=== PATIENT | male | born 1930 | race Caucasian/White ===

== ENCOUNTER 2016-10-02 20:20 | Observation (INO) | payer MEDICARE ==
[~2016-10-02] VITALS: Ht 177.8 cm; Wt 77.0 kg
[~2016-10-02 20:20] MED LIST: HYDR-2952 PO; TRAV0.00 EACH EYE
[2016-10-02 20:23] VITALS: BP 144/73; PULSE 75; RESP 18; TEMP 97.6; O2SAT 95
[2016-10-02] MEDS ORDERED: WARF-23 PO (20:49)
--- NOTE | 2016-10-02 21:09 | PD ---
HPI Chief Complaint: Abnormal Results Time Seen by Provider: 21:05 Travel History International Travel<30 days: No Contact w/Intl Traveler<30days: No Traveled to known affect area: No History of Present Illness HPI 86-year-old male that presents to the ED for evaluation of abnormal results. Per patient about 2 weeks ago he was given a pacemaker secondary to having a low heart rate. Per patient he was put on warfarin secondary to this procedure. He has never taking warfarin before and his been compliant with it. Per patient initially his INR seem to be too low but they kept on the same dose of 5 mg every day. Per patient apparently yesterday had an issue with the machine and they couldn't really get his Coumadin level by fingerstick and they told to withhold his dose today. Today the nurse evaluated him and couldn't get it again so she tried the blood labs and he came high with a level of 12. Patient was told to come here immediately. He denies any pain to me. He denies any weakness. No bleeding of any kind. Per patient he does have some chronic seen issues with the lower legs but no other acute disease. Patient has had a to latex and sulfa. He denies any falls. He denies any complaints to me. Patient comes here with friend who is his neighbor. PFSH Past Medical History Hx Anticoagulant Therapy: Yes (COUMADIN) Cancer: No Cardiovascular Problems: Yes (PACEMAKER) Diabetes: No Diminished Hearing: Yes (UTE) Endocrine: No Genitourinary: No Hepatitis: No Hiatal Hernia: No Hypertension: Yes (HX HTN) Immune Disorder: No Medical other: No Musculoskeletal: Yes (ARTHRITIS) Neurologic: No Psychiatric: No Reproductive: No Respiratory: Yes (COPD) Thyroid Disease: No Tetanus Vaccination: Never Vaccinated Influenza Vaccination: No Past Surgical History Abdominal Surgery: Yes (LAP CHONG) Body Medical Devices: NONE Cholecystectomy: Yes Pacemaker: Yes (09/19/16) Social History Alcohol Use: No Tobacco Use: Yes Substance Use: No Allergies-Medications (Allergen,Severity, Reaction): Coded Allergies: Latex (Verified Allergy, Unknown, 10/02/16) Sulfa (Verified Allergy, Unknown, 10/02/16) Reported Meds & Prescriptions Reported Meds & Active Scripts Active Reported Warfarin 5 Mg Tab 5 Mg PO DAILY Review of Systems General / Constitutional: No: Fever, Chills, Weight Gain, Weight Loss, Other Eyes: No: Diploplia, Blurred Vision, Photophobia, Drainage, Redness, Foreign Body Sensation, Pain, Tearing, Blind Spots, Visual changes, Blindness, Other HENT: No: Headaches, Vertigo, Lightheadedness, Sore Throat, Rhinitis, Rhinorrhea, Congestion, Nosebleed, Neck Stiffness, Neck Pain, Masses, Gingival Bleeding, Dental Difficulties, Ear Discharge, Earache, Other Cardiovascular: No: Chest Pain or Discomfort, Palpitations, Irregular Rhythm, Tachycardia, Diaphoresis, Syncope, Dyspnea on exertion, Varicosities, Edema, Cyanosis, Varicosities, Phlebitis, Claudication, Other Respiratory: No: Cough, Shortness of Breath, Wheezing, Sneezing, Orthopnea, Hemoptysis, Stridor, Night Sweats, Pleuritic Pain, Other Gastrointestinal: No: Nausea, Vomiting, Diarrhea, Abdominal Pain, Hematemesis, Hematochezia, Constipation, Changes in Bowel Habits, Indigestion, Dysphagia, Loss of Appetite, Other Genitourinary: No: Urgency, Frequency, Dysuria, Nocturia, Hematuria, Decreased Urinary Output, Oliguria, Hesitancy, Dribbling, Incontinence, Pelvic Pain, Flank Pain, Dyspareunia, Discharge, Dysmenorrhea, Menorrhagia, Metorrhagia, Vaginal Bleeding, Other Musculoskeletal: Positive: Edema, No: Myalgias, Arthralgias, Limited ROM, Weakness, Cramping, Pain, Atrophy, Other Skin: Positive Rash, No Itching, No Dryness, No Lumps, No Hives, No Change in Pigmentation, No Change in nails, No Alopecia, No Lesions, No Breast Lumps, No Breast Tenderness, No Breast Swelling, No Other Neurologic: No: Weakness, Dizziness, Syncope, Focal Abnormalities, Coordination Problem, Tremor, Ataxia, Headache, Change in Mentation, Slurred Speech, Paresthesia, Incontinence, Seizures, Sensory Disturbance, Other Psychiatric: No: Anxiety, Depression, Suicidal Ideations, Disorder of Thought, Mood Disorder, Substance Abuse, Homicidal Ideation, Other Endocrine: No: Heat Intolerance, Cold Intolerance, Polyuria, Polydipsia, Other Hematologic/Lymphatic: Positive: Easy Bruising, No: Lymph Node Enlargement, Other Physical Exam Narrative GENERAL: SKIN: Warm and dry. HEAD: Atraumatic. Normocephalic. EYES: Pupils equal and round. No scleral icterus. No injection or drainage. ENT: No nasal bleeding or discharge. Mucous membranes pink and moist. Tongue is midline. No uvula deviation. NECK: Trachea midline. No JVD. CARDIOVASCULAR: Regular rate and rhythm. No murmurs, S3, S4. RESPIRATORY: No accessory muscle use. Clear to auscultation. Breath sounds equal bilaterally. GASTROINTESTINAL: Abdomen soft, non-tender, nondistended. Hepatic and splenic margins not palpable. MUSCULOSKELETAL: Extremities without clubbing, cyanosis, or edema. No obvious deformities. Full range of motion of the upper and lower extremities bilaterally. Patient does have some lower leg edema and swelling. This appears to be chronic. Chronic changes of the skin noted. NEUROLOGICAL: Awake and alert. No obvious cranial nerve deficits. Motor grossly within normal limits. Five out of 5 muscle strength in the arms and legs. Normal speech. PSYCHIATRIC: Appropriate mood and affect; insight and judgment normal. Data Data Last Documented VS Vital Signs Date Time Temp Pulse Resp B/P Pulse Ox O2 Delivery O2 Flow Rate FiO2 10/02/16 21:43 78 16 109/67 96 Room Air 10/02/16 20:23 97.6 Orders Complete Blood Count With Diff (10/02/16 20:39) Basic Metabolic Panel (Bmp) (10/02/16 20:39) Prothrombin Time / Inr (Pt) (10/02/16 20:39) Act Partial Throm Time (Ptt) (10/02/16 20:39) Magnesium (Mg) (10/02/16 20:39) Iv Access Insert/Monitor (10/02/16 20:39) Type And Screen (10/02/16 20:39) Phytonadione Inj (Vitamin K Inj) (10/02/16 22:00) Labs Laboratory Tests Test 10/02/16 20:45 White Blood Count 6.1 TH/MM3 Red Blood Count 4.50 MIL/MM3 Hemoglobin 13.5 GM/DL Hematocrit 39.6 % Mean Corpuscular Volume 88.0 FL Mean Corpuscular Hemoglobin 29.9 PG Mean Corpuscular Hemoglobin 34.0 % Concent Red Cell Distribution Width 14.2 % Platelet Count 190 TH/MM3 Mean Platelet Volume 7.5 FL Neutrophils (%) (Auto) 63.1 % Lymphocytes (%) (Auto) 24.8 % Monocytes (%) (Auto) 6.4 % Eosinophils (%) (Auto) 3.9 % Basophils (%) (Auto) 1.8 % Neutrophils # (Auto) 3.8 TH/MM3 Lymphocytes # (Auto) 1.5 TH/MM3 Monocytes # (Auto) 0.4 TH/MM3 Eosinophils # (Auto) 0.2 TH/MM3 Basophils # (Auto) 0.1 TH/MM3 CBC Comment DIFF FINAL Differential Comment Prothrombin Time 166.1 SEC Prothromb Time International 13.4 RATIO Ratio Activated Partial 58.1 SEC Thromboplast Time Blood Type O POSITIVE MDM Medical Decision Making Medical Screen Exam Complete: Yes Emergency Medical Condition: Yes Medical Record Reviewed: Yes Interpretation(s) CBC Diagram 10/02/16 20:45 Coags highly elevated with INR of 13. Differential Diagnosis Coagulopathy versus elevated INR versus medication side effect Narrative Course 86-year-old male that presents to the ED for evaluation of INR of 12. Patient was properly examined and was found to have signs and symptoms consistent with appears to be possible colopathy. Labs will be drawn. Patient has no sign of bleeding at this time. He denies any dark stools no urinary bleeding. No cough or recent bruising at this time. Labs showed coagulopathy. INR 13. Case was discussed in my attending who recommends admission for observation and vitamin K. Partially patient is Judaism and requests no blood pressure was given. Patient lives by himself. Because of this patient will be admitted for observation. This was discussed with patient agrees to admission. Dr Hopkins agrees to admission. Diagnosis Primary Impression: Coagulopathy Admitting Information Admitting Physician Requests: Observation Thomas Blair Oct 02, 2016 21:09
[2016-10-02 21:10] LABS: AUTOMATED NEUTROPHIL # 3.8 TH/MM3 (1.8-7.7); BASOPHIL # 0.1 TH/MM3 (0-0.2); BASOPHIL % 1.8 % (0.0-2.0); EOSINOPHIL # 0.2 TH/MM3 (0-0.4); EOSINOPHIL % 3.9 % (0.0-4.0); HEMATOCRIT 39.6 % (39.0-51.0); HEMO FLAGS DIFF FINAL; LYMPH % 24.8 % (9.0-44.0); LYMPHOCYTE # 1.5 TH/MM3 (1.0-4.8); MEAN CORPUSCULAR HEMOGLOBIN 29.9 PG (27.0-34.0); MONO % 6.4 % (0.0-8.0); NEUT % 63.1 % (16.0-70.0); PLATELET COUNT 190 TH/MM3 (150-450); RED CELL DISTRIBUTION WIDTH 14.2 % (11.6-17.2); WHITE BLOOD COUNT 6.1 TH/MM3 (4.0-11.0)
[2016-10-02 21:43] VITALS: BP 109/67; PULSE 78; RESP 16; O2SAT 96
[2016-10-02 21:46] LABS: APTT (PATIENT) 58.1 SEC (24.3-30.1); PROTHROMBIN TIME - PATIENT 166.1 SEC (9.8-11.6)
[2016-10-02 21:47] LABS: INTERNATIONAL NORMALIZED RATIO 13.4 RATIO
[2016-10-02] MEDS ORDERED: PHYTONADIONE INJ 10 MG in SODIUM CHLORIDE 0.9% INJ 50 ML IV ONE (22:00)
[2016-10-02 22:44] LABS: BICARBONATE 31.2 MEQ/L (21.0-32.0); MAGNESIUM 2.4 MG/DL (1.5-2.5)
[2016-10-02 22:46] LABS: POTASSIUM 4.8 MEQ/L (3.5-5.1)
[2016-10-02 23:40] VITALS: BP 109/67; PULSE 77; RESP 18; O2SAT 97
[2016-10-03 06:00] VITALS: BP 142/71; PULSE 76; RESP 18; TEMP 98.8; O2SAT 97
[2016-10-03 07:18] LABS: INTERNATIONAL NORMALIZED RATIO 2.1 RATIO; PROTHROMBIN TIME - PATIENT 23.9 SEC (9.8-11.6)
[2016-10-03 08:15] VITALS: BP 152/86; PULSE 65; RESP 19; TEMP 98.9; O2SAT 99
[2016-10-03 12:12] VITALS: BP 133/64; PULSE 66; RESP 17; TEMP 97.7; O2SAT 99
--- NOTE | 2016-10-03 12:15 | HHI.HP ---
HPI Service [facility] Primary Care Physician Wilver Hernandes MD Admission Diagnosis coagulopathy on coumadin, INR of 13 Chief Complaint: abnormal lab Travel History International Travel<30 Days: No Contact w/Intl Traveler <30 Da: No Traveled to Known Affected Are: No History of Present Illness Pt is 86 yo presents to ED for elevation of inr. Says he recently had PM placed by Dr José and was prescribed coumadin. This was found to be elevated by nursing. No bleeding has occurred. Pt was given vit k iv 10mg last night and inr down from 13 to 2. Pt insisting on going home this morning. Review of Systems Other abnormal inr no bleeding. Past Family Social History Past Medical History htn pacemaker sleep apnea emphesema per records lap augustin. Reported Medications Reported Meds & Active Scripts Active Reported Warfarin 5 Mg Tab 5 Mg PO DAILY Allergies: Coded Allergies: Latex (Verified Allergy, Unknown, 10/02/16) Sulfa (Verified Allergy, Unknown, 10/02/16) Family History nc Social History no etoh/tob Physical Exam Vital Signs heart reg lung cta abd s/nt ext no edema Vital Signs Date Time Temp Pulse Resp B/P Pulse Ox O2 Delivery O2 Flow Rate FiO2 10/03/16 08:15 98.9 65 19 152/86 99 10/03/16 06:00 98.8 76 18 142/71 97 10/02/16 23:40 77 18 109/67 97 10/02/16 21:43 78 16 109/67 96 Room Air 10/02/16 20:42 76 18 10/02/16 20:23 97.6 75 18 144/73 95 Room Air Laboratory Laboratory Tests Test 10/02/16 10/03/16 20:45 06:45 White Blood Count 6.1 Red Blood Count 4.50 Hemoglobin 13.5 Hematocrit 39.6 Mean Corpuscular Volume 88.0 Mean Corpuscular Hemoglobin 29.9 Mean Corpuscular Hemoglobin 34.0 Concent Red Cell Distribution Width 14.2 Platelet Count 190 Mean Platelet Volume 7.5 Neutrophils (%) (Auto) 63.1 Lymphocytes (%) (Auto) 24.8 Monocytes (%) (Auto) 6.4 Eosinophils (%) (Auto) 3.9 Basophils (%) (Auto) 1.8 Neutrophils # (Auto) 3.8 Lymphocytes # (Auto) 1.5 Monocytes # (Auto) 0.4 Eosinophils # (Auto) 0.2 Basophils # (Auto) 0.1 CBC Comment DIFF FINAL Differential Comment Prothrombin Time 166.1 23.9 Prothromb Time International 13.4 2.1 Ratio Activated Partial 58.1 Thromboplast Time Sodium Level 139 Potassium Level 4.8 Chloride Level 102 Carbon Dioxide Level 31.2 Anion Gap 6 Blood Urea Nitrogen 23 Creatinine 0.82 Estimat Glomerular Filtration 90 Rate Random Glucose 126 Calcium Level 8.8 Magnesium Level 2.4 Blood Type O POSITIVE Antibody Screen NEGATIVE Blood Bank Comment Result Diagram: 10/02/16204410/02/162044 Assessment and Plan Problem List: (1) Coagulopathy Status: Acute Plan: Pt was admitted overnight for observation of coagulopathy from coumadin. He was prescribed by his doctors and recent PM. inr down to 2 after 10mg iv vit k. no bleeding. Pt wishes to go home. He needs close f/u this week for further coumadin adjustment and monitoring by pcp and cardiology. Dimitry Quintero MD Oct 03, 2016 12:15
--- NOTE | 2016-10-03 12:21 | HHI.DCPOC ---
Discharge Care Plan Diagnosis: (1) Coagulopathy Goals to Promote Your Health * To prevent worsening of your condition and complications * To maintain your health at the optimal level Directions to Meet Your Goals Take your medications as prescribed Follow your dietary instruction Follow activity as directed Keep your appointments as scheduled Take your immunizations and boosters as scheduled If your symptoms worsen call your PCP, if no PCP go to Urgent Care Center or Emergency Room Smoking is Dangerous to Your Health. Avoid second hand smoke Call the 24-hour hour crisis hotline for domestic abuse at Dimitry Quintero MD Oct 03, 2016 12:21
== END 2016-10-03 16:56 | disposition home or self-care (01) ==
LOC: NEPE 20:20 → NEDA 22:10 → NEPHCDU 10-03 00:37
PROVIDERS: ADMIT Hospitalist; ATTEND Hospitalist
DX: R79.1 Abnormal coagulation profile (principal); I10 Essential (primary) hypertension; J44.9 Chronic obstructive pulmonary disease, unspecified; G47.30 Sleep apnea, unspecified; H91.90 Unspecified hearing loss, unspecified ear; Z72.0 Tobacco use; Z95.0 Presence of cardiac pacemaker
CPT/HCPCS: 80048; 83735; 85025; 85307; 85610; 85730; 86850; 86900; 86901; 96374; 99284; G0378; J3430

== ENCOUNTER 2017-03-08 07:23 | Inpatient (IN) | payer MEDICARE ==
[~2017-03-08] VITALS: Ht 177.8 cm; Wt 85.0 kg
[2017-03-08] VITALS (8 sets, daily range): BP systolic 124–157; BP diastolic 61–78; PULSE 66–78; RESP 18–20; TEMP 96.2–98.4; O2SAT 95–98
[~2017-03-08 07:23] MED LIST changes: -HYDR-2952 PO; -TRAV0.00 EACH EYE; +WARF-23 PO
[2017-03-08] MEDS ORDERED: COUM2TAB PO (07:47)
[2017-03-08] MEDS ORDERED: POTA1TAB4 PO (07:47)
[2017-03-08] MEDS ORDERED: BUME1TAB PO (07:47)
--- NOTE | 2017-03-08 08:12 | PD ---
HPI Chief Complaint: Skin Problem Time Seen by Provider: 07:40 Travel History International Travel<30 days: No Contact w/Intl Traveler<30days: No Traveled to known affect area: No History of Present Illness HPI Patient is an 86-year-old male presents emergency department for evaluation of bilateral lower extremity skin lesions and weeping. Patient is coming by his family member who states the patient was told to elevate his legs at night but has been unable to do so secondary to discomfort when he does so. Denies any shortness of breath. Patient states he has been on antibiotics from the floor to healthcare Center for this multiple times in the past and it got better but over the past 2 weeks after the antibiotics were stopped and starting to get worse again. Denies any fever. Denies abdominal pain nausea vomiting. He is on Coumadin PFSH Past Medical History Hx Anticoagulant Therapy: Yes (COUMADIN) Cancer: No Cardiovascular Problems: Yes (PACEMAKER) COPD: Yes Diabetes: No Diminished Hearing: Yes ([place]) Endocrine: No Genitourinary: No Hepatitis: No Hiatal Hernia: No Hypertension: Yes (HX HTN) Immune Disorder: No Musculoskeletal: Yes (ARTHRITIS) Neurologic: No Psychiatric: No Reproductive: No Respiratory: Yes (COPD) Thyroid Disease: No Tetanus Vaccination: < 5 Years Past Surgical History Abdominal Surgery: Yes (LAP CHONG) Body Medical Devices: NONE Cardiac Surgery: Yes (pacemaker) Cholecystectomy: Yes Pacemaker: Yes (09/19/16) Other Surgery: Yes Social History Alcohol Use: No Tobacco Use: No Substance Use: No Allergies-Medications (Allergen,Severity, Reaction): Coded Allergies: Latex (Verified Allergy, Unknown, 03/08/17) Sulfa (Verified Allergy, Unknown, 03/08/17) Reported Meds & Prescriptions Reported Meds & Active Scripts Active Reported K-Tab (Potassium Chloride) 20 Meq Tab 20 Meq PO DAILY Bumetanide 1 Mg Tab 1 Mg PO DAILY Review of Systems Except as stated in HPI: all other systems reviewed are Neg Physical Exam Narrative GENERAL: Well-developed well-nourished, perhaps slightly confused 86-year-old male with no obvious distress. Quite pleasant. SKIN: Focused skin assessment warm/dry. HEAD: Atraumatic. Normocephalic. EYES: Pupils equal and round. No scleral icterus. No injection or drainage. ENT: No nasal bleeding or discharge. Mucous membranes pink and moist. NECK: Trachea midline. No JVD. CARDIOVASCULAR: Regular rate and rhythm. No murmur appreciated. RESPIRATORY: No accessory muscle use. Clear to auscultation. Breath sounds equal bilaterally. GASTROINTESTINAL: Abdomen soft, non-tender, nondistended. Hepatic and splenic margins not palpable. MUSCULOSKELETAL: No obvious deformities. No clubbing. No cyanosis. There is significant bilateral lower extremity edema perhaps a little worse on the right than on the left. Weeping wounds seen of both lower extremities again worse on the right than on the left. Significant cellulitis from the toes proximally to the tibial prominence bilaterally. This is circumferential. This represents an advanced cellulitis. Malodorous wrappings were removed. NEUROLOGICAL: Awake and alert. No obvious cranial nerve deficits. Motor grossly within normal limits. Normal speech. PSYCHIATRIC: Appropriate mood and affect; insight and judgment normal. Data Data Last Documented VS Vital Signs Date Time Temp Pulse Resp B/P Pulse Ox O2 Delivery O2 Flow Rate FiO2 03/08/17 08:25 98 Room Air 03/08/17 07:54 80 22 03/08/17 07:28 97.4 157/74 Orders Complete Blood Count With Diff (03/08/17 08:21) Comprehensive Metabolic Panel (03/08/17 08:21) Prothrombin Time / Inr (Pt) (03/08/17 08:21) Act Partial Throm Time (Ptt) (03/08/17 08:21) Magnesium (Mg) (03/08/17 08:21) Phosphorus (Po4) (03/08/17 08:21) Lipase (03/08/17 08:21) Urinalysis - C+S If Indicated (03/08/17 08:21) Blood Culture (03/08/17 08:21) Chest, Single Ap (03/08/17 08:21) Ecg Monitoring (03/08/17 08:21) Iv Access Insert/Monitor (03/08/17 08:21) Oximetry (03/08/17 08:21) Oxygen Administration (03/08/17 08:21) Piperacil-Tazo 3.375 Gm Premix (Zosyn 3. (03/08/17 09:00) Vancomycin Inj (Vancomycin Inj) (03/08/17 10:00) Admit To Inpatient (03/08/17 ) Code Status (03/08/17 09:51) Vital Signs (Adult) Q4H (03/08/17 09:51) Activity Oob With Assistance (03/08/17 09:51) Diet Heart Healthy (03/08/17 Breakfast) Sodium Chloride 0.9% Flush (Ns Flush) (03/08/17 10:00) Sodium Chloride 0.9% Flush (Ns Flush) (03/08/17 21:00) Acetaminophen (Tylenol) (03/08/17 10:00) Ondansetron Inj (Zofran Inj) (03/08/17 10:00) Temazepam (Restoril) (03/08/17 10:00) Basic Metabolic Panel (Bmp) (03/09/17 06:00) Complete Blood Count With Diff (03/09/17 06:00) Electrocardiogram (03/08/17 09:51) Pt Request For Service (03/08/17 09:51) Naloxone Inj (Narcan Inj) (03/08/17 10:00) Magnesium Hydroxide Liq (Milk Of Magnesi (03/08/17 10:00) Inpatient Certification (03/08/17 ) Prothrombin Time / Inr (Pt) (03/09/17 06:00) Vancomycin Inj (Vancomycin Inj) (03/08/17 22:00) Bumetanide (Bumetanide) (03/09/17 09:00) Potassium Chloride (Kcl) (03/09/17 09:00) ^ Other Nursing Orders (03/08/17 09:56) Admit Order (Ed Use Only) (03/08/17 ) Labs Laboratory Tests Test 03/08/17 03/08/17 08:30 08:50 White Blood Count 6.9 TH/MM3 Red Blood Count 4.67 MIL/MM3 Hemoglobin 14.3 GM/DL Hematocrit 41.8 % Mean Corpuscular Volume 89.5 FL Mean Corpuscular Hemoglobin 30.7 PG Mean Corpuscular Hemoglobin 34.3 % Concent Red Cell Distribution Width 13.6 % Platelet Count 171 TH/MM3 Mean Platelet Volume 7.8 FL Neutrophils (%) (Auto) 63.2 % Lymphocytes (%) (Auto) 21.2 % Monocytes (%) (Auto) 13.5 % Eosinophils (%) (Auto) 1.4 % Basophils (%) (Auto) 0.7 % Neutrophils # (Auto) 4.4 TH/MM3 Lymphocytes # (Auto) 1.5 TH/MM3 Monocytes # (Auto) 0.9 TH/MM3 Eosinophils # (Auto) 0.1 TH/MM3 Basophils # (Auto) 0.0 TH/MM3 CBC Comment DIFF FINAL Differential Comment Prothrombin Time 36.7 SEC Prothromb Time International 3.2 RATIO Ratio Activated Partial 44.1 SEC Thromboplast Time Sodium Level 135 MEQ/L Potassium Level 3.7 MEQ/L Chloride Level 97 MEQ/L Carbon Dioxide Level 29.3 MEQ/L Anion Gap 9 MEQ/L Blood Urea Nitrogen 20 MG/DL Creatinine 0.94 MG/DL Estimat Glomerular Filtration 76 ML/MIN Rate Random Glucose 100 MG/DL Calcium Level 9.3 MG/DL Phosphorus Level 3.4 MG/DL Magnesium Level 2.5 MG/DL Total Bilirubin 1.0 MG/DL Aspartate Amino Transf 31 U/L (AST/SGOT) Alanine Aminotransferase 28 U/L (ALT/SGPT) Alkaline Phosphatase 93 U/L Total Protein 8.4 GM/DL Albumin 3.5 GM/DL Lipase 128 U/L Urine Color LIGHT-YELLOW Urine Turbidity CLEAR Urine pH 6.0 Urine Specific [place] 1.006 Urine Protein NEG mg/dL Urine Glucose (UA) NEG mg/dL Urine Ketones NEG mg/dL Urine Occult Blood TRACE Urine Nitrite NEG Urine Bilirubin NEG Urine Urobilinogen LESS THAN 2.0 MG/DL Urine Leukocyte Esterase NEG Urine RBC 1 /hpf Urine WBC 1 /hpf Microscopic Urinalysis Comment CULT NOT INDICATED MDM Medical Decision Making Medical Screen Exam Complete: Yes Emergency Medical Condition: Yes Differential Diagnosis Cellulitis, sepsis, chronic venous stasis. Narrative Course Patient roomed in the emergency department, certainly significant cellulitis of bilateral lower extremities and has been on antibiotics, this constitutes a failure of outpatient therapy and given the nature and the size of the cellulitic area I would recommend admission to hospital for him anyways at this point. He is agreeable. His labs are reassuring and he has not met SIRS criteria. Started on antibiotics and discussed with [facility] for admission. Diagnosis Primary Impression: Cellulitis of both lower extremities Additional Impression: Venous stasis Admitting Information Admitting Physician Requests: Admit Scripts Lactobacillus Acidophilus (Lactinex)1 Chew1 Tab CHEW DAILY 14 Days Ref 0 Prov:Shady Garg DO 03/10/17 Temazepam (Restoril)15 Mg Cap15 Mg PO HS PRN (INSOMNIA) #30 CAP Ref 0 Prov:Shady Garg DO 03/10/17 Levofloxacin (Levaquin)750 Mg [id number] Mg PO DAILY #7 MG Ref 0 Prov:Shady Garg DO 03/10/17 Ipratropium-Albuterol Neb (Duoneb)0.5-2.5 Mg/3 Ml Neb1 Ampule NEB QID NEB PRN ( SOB/WHEEZING) 30 Days Prov:Shady Garg DO 03/10/17 Clindamycin (Cleocin)150 Mg [id number] Mg PO Q6HR 7 Days Ref 0 Prov:Shady Garg DO 03/10/17 Warfarin (Coumadin)2 Mg Tab2 Mg PO DAILY #30 TAB Ref 0 resume 03/12/17 Prov:Shady Garg DO 03/10/17 Condition: Stable Aditya Marc MD Mar 08, 2017 08:12
[2017-03-08 08:53] LABS: AUTOMATED NEUTROPHIL # 4.4 TH/MM3 (1.8-7.7); BASOPHIL % 0.7 % (0.0-2.0); EOSINOPHIL # 0.1 TH/MM3 (0-0.4); EOSINOPHIL % 1.4 % (0.0-4.0); HEMATOCRIT 41.8 % (39.0-51.0); HEMO FLAGS DIFF FINAL; LYMPH % 21.2 % (9.0-44.0); LYMPHOCYTE # 1.5 TH/MM3 (1.0-4.8); MEAN CELL VOLUME 89.5 FL (80.0-100.0); MEAN CORPUSCULAR HEMOGLOBIN 30.7 PG (27.0-34.0); MEAN CORPUSCULAR HGB CONC 34.3 % (32.0-36.0); MONO % 13.5 % (0.0-8.0); NEUT % 63.2 % (16.0-70.0); PLATELET COUNT 171 TH/MM3 (150-450); RED BLOOD COUNT 4.67 MIL/MM3 (4.50-5.90); RED CELL DISTRIBUTION WIDTH 13.6 % (11.6-17.2); WHITE BLOOD COUNT 6.9 TH/MM3 (4.0-11.0)
[2017-03-08] MEDS ORDERED: PIPERACIL-TAZO 3.375 GM PREMIX 50 ML IV ONE (09:00)
[2017-03-08 09:04] LABS: APTT (PATIENT) 44.1 SEC (24.3-30.1); INTERNATIONAL NORMALIZED RATIO 3.2 RATIO; PROTHROMBIN TIME - PATIENT 36.7 SEC (9.8-11.6)
--- NOTE | 2017-03-08 09:08 | RADRPT ---
EXAM DATE/TIME: 03/08/2017 08:41 [place] COMPARISON: No previous studies available for comparison. INDICATIONS : Shortness of breath. MEDICAL HISTORY : Hypertension. Chronic obstructive pulmonary disease. SURGICAL HISTORY : Cholecystectomy. Pacemaker. ENCOUNTER: Initial ACUITY: 3 days PAIN SCORE: 0/10 LOCATION: Bilateral chest FINDINGS: A single view of the chest demonstrates pacer lead overlying right ventricle. Minimal basal atelectas is. Heart size mildly enlarged. No effusion or pneumothorax. CONCLUSION: 1. Minimal basal atelectasis. Pacer lead overlies right ventricle. No consolidation or effusion. Mike Funk MD on March 08, 2017 at 9:06 Board Certified Radiologist. This report was verified electronically.
[2017-03-08 09:10] LABS: ANION GAP 9 MEQ/L (5-15); AST (GOT) 31 U/L (15-37); BICARBONATE 29.3 MEQ/L (21.0-32.0); BLOOD UREA NITROGEN 20 MG/DL (7-18); CHLORIDE 97 MEQ/L (98-107); GLOMERULAR FILTRATION RATE 76 ML/MIN (>89); MAGNESIUM 2.5 MG/DL (1.5-2.5); POTASSIUM 3.7 MEQ/L (3.5-5.1); SODIUM (NA) 135 MEQ/L (136-145)
[2017-03-08 09:11] LABS: ALT (GPT) 28 U/L (12-78)
[2017-03-08 09:14] LABS: ALKALINE PHOSPHATASE 93 U/L (45-117)
[2017-03-08 09:20] LABS: BLOOD, URINE TRACE (NEG); COMMENT (UR) CULT NOT INDICATED; CULTURE IF INDICATED CULT NOT INDICATED; GLUCOSE,URINE NEG (NEG); KETONE, URINE NEG (NEG); NITRITE,URINE NEG (NEG); URINE COLOR LIGHT-YELLOW (YELLW/STRAW)
[2017-03-08] MEDS ORDERED: ONDANSETRON HCL 4 MG/2 ML VIAL IVP PRN (10:00)
[2017-03-08] MEDS ORDERED: NALOXONE HCL 0.4 MG/ML AMP IV PRN (10:00)
[2017-03-08] MEDS ORDERED: TEMAZEPAM 15 MG CAP PO PRN (10:00)
[2017-03-08] MEDS ORDERED: VANCOMYCIN INJ 1,000 MG in SODIUM CHLOR 0.9% 250 ML INJ 250 ML IV ONE (10:00)
[2017-03-08] MEDS ORDERED: MAGNESIUM HYDROXIDE SUSP 30 ML CUP PO PRN (10:00)
[2017-03-08] MEDS ORDERED: SODIUM CHLORIDE 0.9% FLUSH 10 ML FLUSH IV FLUSH PRN (10:00)
[2017-03-08] MEDS ORDERED: ACETAMINOPHEN 325 MG TAB PO PRN (10:00)
--- NOTE | 2017-03-08 10:39 | HHI.HP ---
HPI Service [facility] Hospitalists Primary Care Physician Non-Staff Admission Diagnosis Cellulitis of lower extremities Chief Complaint: b/l LE infection Travel History International Travel<30 Days: No Contact w/Intl Traveler <30 Da: No Traveled to Known Affected Are: No History of Present Illness Pt is a pleasant 86 y/o M with h/o HTN, THERON, and COPD. Pt presented to the ER with c/o B/L LE infections. Pt states that he has had b/l LE since 01/03/17. Pt was placed on a course of PO keflex 02/11 - 02/20/17 without improvement. Pt was instructed by his PCP to elevate his LEs, but pt was NOT able to comply with this since he sleeps in a recliner chair. Pt has chronic venous stasis of his lower extremities. Review of the pt's outpt records in the [facility] EHR show that pt has recurrent venous stasis ulcers: right anterior fLE and foot. Also, left heel and left midfoot. Patient was hospitalized at [facility] September 2016 due to slow atrial fibrillation with heart rate going down into the 120s. At that time, patient had a pacemaker placed by cardiology, Dr. José. Patient was also noted to have right lower extremity cellulitis. Patient was seen by infectious disease. Wound Culture grew out light growth of Streptococcus Agalactiae. Patient was started on IV vancomycin and Ancef. Infectious disease change this regimen to IV minocycline and IV Unasyn for 48 hours which was then transitioned to oral minocycline and Augmentin for 8 days. Review of Systems Constitutional: DENIES: Diaphoretic episodes, Fatigue, Fever, Weight gain, Weight loss, Chills, Dizziness, Change in appetite, Night Sweats Endocrine: DENIES: Heat/cold intolerance, Polydipsia, Polyuria, Polyphagia Eyes: DENIES: Blurred vision, Diplopia, Eye inflammation, Eye pain, Vision loss , Photosensitivity, Double Vision Ears, nose, mouth, throat: DENIES: Tinnitus, Hearing loss, Vertigo, Nasal discharge, Oral lesions, Throat pain, Hoarseness, Ear Pain, Running Nose, Epistaxis, Sinus Pain, Toothache, Odynophagia Respiratory: DENIES: Apneas, Cough, Snoring, Wheezing, Hemoptysis, Sputum production, Shortness of breath Cardiovascular: DENIES: Chest pain, Palpitations, Syncope, Dyspnea on Exertion , PND, Lower Extremity Edema, Orthopnea, Claudication Gastrointestinal: DENIES: Abdominal pain, Black stools, Bloody stools, BRB per rectum, Constipation, Diarrhea, GERD, Nausea, Reflux, Vomiting, Difficulty Swallowing, Anorexia Genitourinary: DENIES: Urinary frequency, Urinary incontinence, Urgency, Hematuria, Dysuria, Nocturia Musculoskeletal: DENIES: Joint pain, Muscle aches, Stiffness, Joint Swelling, Back pain, Neck pain Integumentary: COMPLAINS OF: Abnormal pigmentation, DENIES: Nail changes, Pruritus, Rash Hematologic/lymphatic: DENIES: Bruising, Lymphadenopathy Immunologic/allergic: DENIES: Eczema, Urticaria Neurologic: DENIES: Abnormal gait, Headache, Localized weakness, Paresthesias, Seizures, Speech Problems, Tremor, Poor Balance Psychiatric: DENIES: Anxiety, Confusion, Mood changes, Depression, Hallucinations, Agitation, Suicidal Ideation, Homicidal Ideation, Delusions, History of Bipolar, History of Schizophrenia Past Family Social History Past Medical History 1) htn 2) pacemaker 3) sleep apnea - pt follows with Dr. Cervantes 4) COPD 5) Pulmonary HTN 6) Atrial Fibrillation, chroinic 7) OA 8) Hypothyroid Past Surgical History 1. History of Anterior Chamber Laser Trabeculoplasty Right Eye 2. History of Cholecystectomy Laparoscopic 3. History of Total Knee Arthroplasty 4. History of Transurethral Resection Of Prostate Reported Medications Reported Meds & Active Scripts Active Reported K-Tab (Potassium Chloride) 20 Meq Tab 20 Meq PO DAILY Bumetanide 1 Mg Tab 1 Mg PO DAILY Coumadin (Warfarin) 2 Mg Tab 2 Mg PO DAILY Allergies: Coded Allergies: Latex (Verified Allergy, Unknown, 03/08/17) Sulfa (Verified Allergy, Unknown, 03/08/17) Family History Non-contributory Social History - - never a smoker - denies etoh - denies illicit street drugs Physical Exam Vital Signs Vital Signs Date Time Temp Pulse Resp B/P Pulse Ox O2 Delivery O2 Flow Rate FiO2 03/08/17 10:21 78 20 142/76 97 Room Air 03/08/17 08:25 98 Room Air 03/08/17 07:54 80 22 03/08/17 07:28 97.4 74 18 157/74 98 Physical Exam GENERAL: This is a well-nourished, well-developed patient, in no apparent distress. SKIN: No rashes, ecchymoses or lesions. Cool and dry. HEAD: Atraumatic. Normocephalic. No temporal or scalp tenderness. EYES: Pupils equal round and reactive. Extraocular motions intact. No scleral icterus. No injection or drainage. ENT: Nose without bleeding, purulent drainage or septal hematoma. Throat without erythema, tonsillar hypertrophy or exudate. Uvula midline. Airway patent. NECK: Trachea midline. No JVD or lymphadenopathy. Supple, nontender, no meningeal signs. CARDIOVASCULAR: Regular rate and rhythm without murmurs, gallops, or rubs. RESPIRATORY: Clear to auscultation. Breath sounds equal bilaterally. No wheezes , rales, or rhonchi. GASTROINTESTINAL: Abdomen soft, non-tender, nondistended. No hepato-splenomegaly , or palpable masses. No guarding. MUSCULOSKELETAL: Extremities without clubbing, cyanosis, or edema. No joint tenderness, effusion, or edema noted. No calf tenderness. Negative Homans sign bilaterally. NEUROLOGICAL: Awake and alert. Cranial nerves II through XII intact. Motor and sensory grossly within normal limits. Five out of 5 muscle strength in all muscle groups. Normal speech. Skin: Lower extremities have venous stasis changes bilaterally with thickened and scaled skin. There is a foul odor from the right lower extremity. On the mid anterior surface of patient's right lower extremity there is an adhered bandage to the skin approximately 24 cm. I expect there'll be denuded skin as the bandage is washed off. There is some degree of edema at both lower extremities. Laboratory Laboratory Tests Test 03/08/17 03/08/17 08:30 08:50 White Blood Count 6.9 Red Blood Count 4.67 Hemoglobin 14.3 Hematocrit 41.8 Mean Corpuscular Volume 89.5 Mean Corpuscular Hemoglobin 30.7 Mean Corpuscular Hemoglobin 34.3 Concent Red Cell Distribution Width 13.6 Platelet Count 171 Mean Platelet Volume 7.8 Neutrophils (%) (Auto) 63.2 Lymphocytes (%) (Auto) 21.2 Monocytes (%) (Auto) 13.5 Eosinophils (%) (Auto) 1.4 Basophils (%) (Auto) 0.7 Neutrophils # (Auto) 4.4 Lymphocytes # (Auto) 1.5 Monocytes # (Auto) 0.9 Eosinophils # (Auto) 0.1 Basophils # (Auto) 0.0 CBC Comment DIFF FINAL Differential Comment Prothrombin Time 36.7 Prothromb Time International 3.2 Ratio Activated Partial 44.1 Thromboplast Time Sodium Level 135 Potassium Level 3.7 Chloride Level 97 Carbon Dioxide Level 29.3 Anion Gap 9 Blood Urea Nitrogen 20 Creatinine 0.94 Estimat Glomerular Filtration 76 Rate Random Glucose 100 Calcium Level 9.3 Phosphorus Level 3.4 Magnesium Level 2.5 Total Bilirubin 1.0 Aspartate Amino Transf 31 (AST/SGOT) Alanine Aminotransferase 28 (ALT/SGPT) Alkaline Phosphatase 93 Total Protein 8.4 Albumin 3.5 Lipase 128 Urine Color LIGHT-YELLOW Urine Turbidity CLEAR Urine pH 6.0 Urine Specific [place] 1.006 Urine Protein NEG Urine Glucose (UA) NEG Urine Ketones NEG Urine Occult Blood TRACE Urine Nitrite NEG Urine Bilirubin NEG Urine Urobilinogen LESS THAN 2.0 Urine Leukocyte Esterase NEG Urine RBC 1 Urine WBC 1 Microscopic Urinalysis Comment CULT NOT INDICATED Date/Time Procedure Status Source Growth 03/08/17 08:35 Aerobic Blood Culture Received Blood Peripheral Pending 03/08/17 08:35 Anaerobic Blood Culture Received Blood Peripheral Pending Result Diagram: 03/08/1782903/08/17829 Imaging Last Impressions Chest X-Ray 03/08/17820 Signed Impressions: Service Date/Time: Wednesday, March 08, 2017 08:41 - CONCLUSION: 1. Minimal basal atelectasis. Pacer lead overlies right ventricle. No consolidation or effusion. Mike Funk MD Septic Shock Reassessment Heart: Regular rate and rhythm Lungs: Clear Skin: Warm Peripheral Pulses: Bounding Right Radial Bounding Left Radial Bounding Right Popliteal Bounding Left Popliteal Bounding Right Dorsalis Pedis Bounding Left Dorsalis Pedis Bounding Right Posterior Tibial Bounding Left Posterior Tibial Capillary Refill: Brisk Assessment and Plan Problem List: (1) Cellulitis of both lower extremities Status: Acute Plan: - obtain CTA with runoff to further evaluate for vascular insufficiency - Pt received one dose of vancomycin and zosyn in the ER (03/08/17) - continue IV vancomycin - bumex/KCL - Echocardiogram (09/20/16) --> EF 60-65% - elevate LEs - Request evaluation by wound care nursing - Obtain wound culture of right lower extremity - DVT prophylaxis - pt on coumadin for Afib - supportive care - I anticipate that patient will be in the hospital for at least 3-4 days - I anticipate patient will need to be discharged to a SNF for strict bed rest and elevation of his lower extremities (2) Venous stasis Status: Acute Plan: - see above (3) Atrial fibrillation Status: Chronic Plan: - Pt is NOT on any rate controlling agents - s/p PPM by Dr. Joés, Sep 2016 - Pt on coumadin - INR 3.2 - hold coumadin - repeat INR in AM (4) COPD (chronic obstructive pulmonary disease) Status: Acute Plan: - duonebs prn (5) HTN (hypertension) Status: Chronic Plan: - pt is NOT on scheduled antihypertensives - but review of outpt bp readings shows some elevated readings - prn catapress - observe BP readings - I will start scheduled BP medication if needed based on readings. (6) THERON (obstructive sleep apnea) Status: Acute Physician Certification 2 Midnight Certification Type: Admission for Inpatient Services Order for Inpatient Services The services are ordered in accordance with Medicare regulations or non- Medicare payer requirements, as applicable. In the case of services not specified as inpatient-only, they are appropriately provided as inpatient services in accordance with the 2-midnight benchmark. Estimated LOS (days): 3 3 days is the estimated time the patient will need to remain in the hospital, assuming treatment plan goals are met and no additional complications. Post-Hospital Plan: Not yet determined Problem Qualifiers (1) COPD (chronic obstructive pulmonary disease): Qualified Code: J44.9 - Chronic obstructive pulmonary disease, unspecified COPD type Shady Garg DO Mar 08, 2017 10:39
[2017-03-08] MEDS ORDERED: RESP: ALBUTEROL 2.5 MG/IPRATROPIUM 0.5 MG NEB (PRN) NEB (11:15)
[2017-03-08] MEDS ORDERED: cloNIDine HCL 0.2 MG TAB PO PRN (11:30)
[2017-03-08] MEDS ORDERED: IOHEXOL 350 MG/ML 10 ML VIAL (for RAD DIAG) IV ONE (14:51)
--- NOTE | 2017-03-08 17:41 | RADRPT ---
EXAM DATE/TIME: 03/08/2017 14:34 [place] COMPARISON: No previous studies available for comparison. INDICATIONS : Bilateral low leg ulcers. IV CONTRAST: 100 cc Omnipaque 350 (iohexol) IV RADIATION DOSE: 4.57 CTDIvol (mGy) MEDICAL HISTORY : Hypertension. Chronic obstructive pulmonary disease. SURGICAL HISTORY : Cholecystectomy. Right knee replacement ENCOUNTER: Initial ACUITY: 1 week PAIN SCALE: 7/10 LOCATION: Bilateral lower extremity TECHNIQUE: Volumetric scanning was performed using a multi-row detector CT scanner. The data was post processed with a variety of visualization algorithms including full volume maximum intensity projection, multi -planar sliding thin slab reformation, curved planar reformation, and surface rendering techniques. Using automated exposure control and adjustment of the mA and/or kV according to patient size, radiat ion dose was kept as low as reasonably achievable to obtain optimal diagnostic quality images. DICO M format image data is available electronically for review and comparison. FINDINGS: AORTA: Mild to moderate mixed plaque in the infrarenal dominate aorta with mild associated stenosis near the origin of the EVAN. No significant aneurysm. VISCERAL ARTERIES: Celiac and SMA are patent. Single bilateral renal arteries are also patent. EVAN is patent. RIGHT LEG: INFLOW: Mild stenosis of the common iliac artery origins secondary to mixed plaque. Otherwise, iliac arteries are patent. Common femoral artery is patent. OUTFLOW: Profunda is patent. SFA is patent. There is limited evaluation of the popliteal artery secondary to a rtifact from knee prosthesis. Visualized portions of the popliteal artery are patent. RUNOFF: There is significant venous contamination limiting evaluation of the runoff vessels. The runoff vesse ls are diffusely calcified and small in caliber. Patency is not reliably evaluated. LEFT LEG: INFLOW: No significant iliac inflow stenosis. Common femoral artery is patent. OUTFLOW: Profunda is patent. Diffuse mid to distal SFA calcifications with tandem mild stenoses. Popliteal ar khoa is patent. RUNOFF: There is significant venous contamination with small caliber calcified runoff vessels limiting patenc y evaluation. GENERAL FINDINGS: Visualized lung bases are clear. Evaluation of the abdominal viscera is limited due to arterial phase technique. Liver, spleen, adrenal glands, gallbladder, and pancreas are grossly unremarkable. Kidney s demonstrate symmetrical enhancement without evidence for hydronephrosis. There is a 3 mm calcified calculus in the inferior pole of the left kidney. Scattered colonic diverticula. The bowel otherwise appears unremarkable without evidence for obstruction. No significant free fluid or drainable fluid c ollection. Bladder is mildly distended but otherwise unremarkable. Prostate is nonspecifically enlarged. No abno rmal lytic or blastic bony lesions. CONCLUSION: 1. No significant aortic or iliac inflow stenosis. 2. No significant outflow stenosis. 3. Very limited evaluation of the runoff vessels due to venous contamination and diffusely calcified small caliber vessels. 4. 3 mm nonobstructing calcified calyceal calculus in the inferior pole of the left kidney. 5. Scattered colonic diverticulosis 6. Nonspecific enlargement of prostate gland. Senthil Gusman MD on March 08, 2017 at 17:26 Board Certified Radiologist. This report was verified electronically.
--- NOTE | 2017-03-08 18:38 | PD.WCN.NOT ---
Wound Consult Description: Bilateral lower extremities wounds Communicated with: DONATO Jules and Doctor Britany for orders Recommendation: Please cleanse wounds to bilateral lower extremities with normal saline or wound cleanser and pat dry. Please apply Optifoam gentle AG over open wounds and secure with rolled gauze and tape. Change dressing every 2 days or PRN if saturated or dislodged Additional Information: Patient seen on for evaluation of bilateral lower extremity wound management. Removed telfa and rolled gauze dressings in place to R leg to reveal Diffuse shallow ulcers to R lower leg. Wounds present with ~60% red non granulation tissue and ~40% thin yellow tissue. Active wound drainage is sero- sanguinous and moderate with foul odor. All wound margins are irregular. Entire R lower leg noted with hard non pitting edema, and erythema that presents worse on R than on L leg. Cleansed wounds to R lower leg with normal saline and applied Optifoam AG non adhesive dressings in place over wounds and secured with rolled gauze and tape. Removed dressing to L leg to reveal to 2 open ulcers to L lower leg. Lateral L lower leg ulcer presents as partial thickness with 100% pink tissue. Wound measures ~10cm x ~10 cm x~<0.1cm. Wound drainage is minimal and serous with mild odor. Wound to medial L lower leg presents as full thickness shallow ulcer with 100% clean red non granulation tissue.Wound drainage is minimal and sero- sanguinous with mild odor. Wound measures ~7cm x ~8cm x ~0.1cm. Wound margins are irregular. Entire L leg noted with dry scaly skin, erythema, and hard non pitting edema.Cleansed both wounds with normal saline and applied Optifoam AG non adhesive dressing over wounds and secured dressings with rolled gauze and tape. Bilateral lower extremity wounds appear to have a Venous stasis etiology. Communicated with patient the importance of elevating BLE when sitting in chair or while in bed to reduce edema. Sirisha Mart[facility]nez [facility] Mar 08, 2017 18:38
[2017-03-08] MEDS: VANCOMYCIN INJ 1,000 MG in SODIUM CHLOR 0.9% 250 ML INJ 250 ML IV SCH (22:40)
[2017-03-08] MEDS: SODIUM CHLORIDE 0.9% FLUSH 10 ML FLUSH IV FLUSH SCH (22:40)
[2017-03-09 05:48] LABS: AUTOMATED NEUTROPHIL # 3.9 TH/MM3 (1.8-7.7); BASOPHIL % 0.7 % (0.0-2.0); EOSINOPHIL # 0.1 TH/MM3 (0-0.4); EOSINOPHIL % 1.8 % (0.0-4.0); HEMATOCRIT 38.9 % (39.0-51.0); HEMO FLAGS DIFF FINAL; LYMPH % 20.5 % (9.0-44.0); LYMPHOCYTE # 1.3 TH/MM3 (1.0-4.8); MEAN CELL VOLUME 89.8 FL (80.0-100.0); MEAN CORPUSCULAR HEMOGLOBIN 30.2 PG (27.0-34.0); MEAN CORPUSCULAR HGB CONC 33.7 % (32.0-36.0); MONO % 12.9 % (0.0-8.0); NEUT % 64.1 % (16.0-70.0); PLATELET COUNT 163 TH/MM3 (150-450); RED BLOOD COUNT 4.33 MIL/MM3 (4.50-5.90); RED CELL DISTRIBUTION WIDTH 13.5 % (11.6-17.2); WHITE BLOOD COUNT 6.1 TH/MM3 (4.0-11.0)
[2017-03-09 06:00] LABS: INTERNATIONAL NORMALIZED RATIO 2.9 RATIO; PROTHROMBIN TIME - PATIENT 33.8 SEC (9.8-11.6)
[2017-03-09 06:12] LABS: BICARBONATE 29.8 MEQ/L (21.0-32.0); POTASSIUM 3.4 MEQ/L (3.5-5.1)
[2017-03-09 08:00] VITALS: BP 112/67; PULSE 77; RESP 17; TEMP 95.4; O2SAT 98
[2017-03-09] MEDS: SODIUM CHLORIDE 0.9% FLUSH 10 ML FLUSH IV FLUSH SCH ×2 (08:32→20:17)
[2017-03-09] MEDS: POTASSIUM CHLORIDE 20 MEQ CONTROLLED RELEASE TAB PO SCH (08:32)
[2017-03-09] MEDS: BUMETANIDE 1 MG TAB PO SCH (08:32)
[2017-03-09] MEDS: VANCOMYCIN INJ 1,000 MG in SODIUM CHLOR 0.9% 250 ML INJ 250 ML IV SCH (10:28)
--- NOTE | 2017-03-09 11:50 | EKG ---
Date Performed: 03/08/2017 Time Performed: 10:21:37 PTAGE: 86 years EKG: ELECTRONIC VENTRICULAR PACEMAKER ABNORMAL RHYTHM ECG PREVIOUS TRACING : 11/13/2012 09.24 DOCTOR: Chauncey Hernandez Interpretating Date/Time 03/09/2017 11:49:29
[2017-03-09 12:00] VITALS: BP 115/69; PULSE 76; RESP 18; TEMP 97.9; O2SAT 95
--- NOTE | 2017-03-09 14:27 | HHI.PR ---
Subjective Remarks No new complaints. Objective Vitals Vital Signs Date Time Temp Pulse Resp B/P Pulse Ox O2 Delivery O2 Flow Rate FiO2 03/09/17 12:00 97.9 76 18 115/69 95 03/09/17 08:00 95.4 77 17 112/67 98 03/08/17 23:54 96.5 66 18 126/64 97 03/08/17 20:30 96.2 78 18 146/75 96 03/08/17 16:31 98.3 75 18 126/62 97 03/08/17 03/08/17 03/09/17 14:59 22:59 06:59 Intake Total 840 ml 610 ml Output Total 500 ml Balance -500 ml 840 ml 610 ml Intake Oral 840 ml 360 ml IV Total 0 ml 250 ml Output Urine Total 500 ml # Voids 1 2 3 # Bowel Movements 3 Result Diagram: 03/09/17 0525 03/09/17 0525 Imaging Last Impressions Chest X-Ray 03/08/17 0821 Signed Impressions: Service Date/Time: Wednesday, March 08, 2017 08:41 - CONCLUSION: 1. Minimal basal atelectasis. Pacer lead overlies right ventricle. No consolidation or effusion. Mike Funk MD Aorta w/Runoff CTA 03/08/17 0000 Signed Impressions: Service Date/Time: Wednesday, March 08, 2017 14:34 - CONCLUSION: 1. No significant aortic or iliac inflow stenosis. 2. No significant outflow stenosis. 3. Very limited evaluation of the runoff vessels due to venous contamination and diffusely calcified small caliber vessels. 4. 3 mm nonobstructing calcified calyceal calculus in the inferior pole of the left kidney. 5. Scattered colonic diverticulosis 6. Nonspecific enlargement of prostate gland. Senthil Gusman MD Objective Remarks GENERAL: This is a well-nourished, well-developed patient, in no apparent distress. CARDIOVASCULAR: Regular rate and rhythm without murmurs, gallops, or rubs. RESPIRATORY: Clear to auscultation. Breath sounds equal bilaterally. No wheezes , rales, or rhonchi. GASTROINTESTINAL: Abdomen soft, non-tender, nondistended. Normal active bowel sounds MUSCULOSKELETAL: Extremities without clubbing, cyanosis, or edema. NEURO: Alert & Oriented x4 to person, place, time, situation. Moves all ext x4 A/P Problem List: (1) Cellulitis of both lower extremities Status: Acute Plan: - CTA with runoff (03/09/17) - 1. No significant aortic or iliac inflow stenosis. 2. No significant outflow stenosis. 3. Very limited evaluation of the runoff vessels due to venous contamination and diffusely calcified small caliber vessels. - Pt received one dose of vancomycin and zosyn in the ER (03/08/17) - IV vancomycin (03/08 -03/09/17) - wound Cx --> 3 species of gram positive rods, including pseudomonas - change abx to rocephin/levaquin - Request ID consultation - bumex/KCL - Echocardiogram (09/20/16) --> EF 60-65% - elevate LEs - appreciate input from wound care nurse - DVT prophylaxis - pt on coumadin for Afib - supportive care - ideally SNF upon discharge for strict bedrest (2) Venous stasis Status: Acute Plan: - see above (3) Atrial fibrillation Status: Chronic Plan: - Pt is NOT on any rate controlling agents - s/p PPM by Dr. José, Sep 2016 - Pt on coumadin - INR 3.2 (03/08/17), 2.9 (03/09) - hold coumadin - repeat INR in AM (4) COPD (chronic obstructive pulmonary disease) Status: Acute Plan: - duonebs prn (5) HTN (hypertension) Status: Chronic Plan: - pt is NOT on scheduled antihypertensives - but review of outpt bp readings shows some elevated readings - prn catapress - observe BP readings - I will start scheduled BP medication if needed based on readings. (6) THERON (obstructive sleep apnea) Status: Acute Problem Qualifiers (1) COPD (chronic obstructive pulmonary disease): Qualified Code: J44.9 - Chronic obstructive pulmonary disease, unspecified COPD type Shady Garg DO Mar 09, 2017 14:27
[2017-03-09 16:00] VITALS: BP 137/69; PULSE 68; RESP 19; TEMP 95.5; O2SAT 99
[2017-03-09] MEDS ORDERED: POTASSIUM CHLORIDE 20 MEQ CONTROLLED RELEASE TAB PO ONE (16:00)
[2017-03-09] MEDS ORDERED: LEVOFLOXACIN 500 MG TAB PO SCH (16:00)
[2017-03-09] MEDS ORDERED: cefTRIAXone 1,000 MG/NS 100 ML IV SCH ×2 (17:00)
--- NOTE | 2017-03-09 17:59 | PD.CONS ---
History of Present Illness Service Infectious disease Consult Requested By Dr. Garg Reason for Consult Evaluate patient with stasis ulcers, positive culture Primary Care Physician Non-Staff Diagnoses: History of Present Illness Patient seen and examined. Records reviewed. Patient is an 86-year-old male, admitted to the hospital for further evaluation of his bilateral lower extremity wounds. He has had problem with edema, and developing stasis ulcers. Has been going on and off, and I really couldn't get a good history from the patient as to how long this has been going on. According to the patient though wounds will heal up, and then they would come back again. There was mention that he was at [facility] in September for cardiac issues, and he was found to have right lower extremity cellulitis, with a wound culture that grew group B strep. His current problem now has been present for several weeks. He was apparently placed on some oral Keflex. He was not improving, and he was told to the hospital for further evaluation and treatment. States that his daughter does the dressing changes, and there would be a nurse that would at times go to his house to evaluate his wounds. There is been no fever or chills. Since admission, he has not been febrile. His WBC is normal. There was a wound culture done and it is growing mixed enteric gram- negative rods, and possibly Pseudomonas. Infectious disease consultation has been requested to evaluate the patient. Review of Systems Constitutional: DENIES: Fever, Chills Eyes: DENIES: Eye pain Ears, nose, mouth, throat: DENIES: Nasal discharge, Oral lesions, Throat pain, Ear Pain, Sinus Pain Respiratory: DENIES: Shortness of breath Cardiovascular: COMPLAINS OF: Lower Extremity Edema, DENIES: Chest pain, Palpitations Gastrointestinal: DENIES: Abdominal pain, Diarrhea, Nausea, Vomiting, Difficulty Swallowing Genitourinary: DENIES: Dysuria, Nocturia Musculoskeletal: DENIES: Joint pain, Joint Swelling Neurologic: DENIES: Headache Psychiatric: DENIES: Confusion, Hallucinations Past Family Social History Allergies: Coded Allergies: Latex (Verified Allergy, Unknown, 03/08/17) Sulfa (Verified Allergy, Unknown, 03/08/17) Past Medical History Hypertension COPD, sleep apnea Pulmonary hypertension Chronic A. fib Arthritis Hypothyroidism 1 Past Surgical History Surgery to the right eye Laparoscopic cholecystectomy Left TKA TURP. Active Ordered Medications Tylenol Albuterol Bumex Rocephin Clonidine Levaquin MOM Zofran Potassium Restoril Vancomycin Family History Noncontributory Social History Nonsmoker No alcohol abuse No illicit drugs Physical Exam Vital Signs Vital Signs Date Time Temp Pulse Resp B/P Pulse Ox O2 Delivery O2 Flow Rate FiO2 03/09/17 12:00 97.9 76 18 115/69 95 03/09/17 08:00 95.4 77 17 112/67 98 03/08/17 23:54 96.5 66 18 126/64 97 03/08/17 20:30 96.2 78 18 146/75 96 Physical Exam GENERAL: Patient is a well-nourished, well-developed CM, awake and alert, not in respiratory distress. SKIN: Warm and dry. No generalized rash, no ecchymoses and no evidence of embolic lesions. HEAD: Atraumatic. Normocephalic. No temporal wasting, or tenderness. EYES: [place] conjunctiva. No petechia or hemorrhage. Pupils equal, round and reactive to light. Extraocular movements full and intact. No scleral icterus. No injection or drainage. EARS, NOSE AND THROAT: Nose without bleeding or purulent nasal discharge. No sinus tenderness. Mucous membranes pink and moist. No oral lesions noted. No exudate. No oral thrush. NECK: Trachea midline. Supple and not tender, no meningeal signs CARDIOVASCULAR: Regular rate and rhythm. No murmurs, rubs or gallops heard RESPIRATORY: Clear to auscultation. Breath sounds equal bilaterally. No rales , wheezing or rhonchi ABDOMEN: Soft, non-tender, nondistended. Bowel sounds present and normoactive. No guarding. No rebound. No organomegaly. EXTREMITIES: No clubbing, cyanosis. Has bilateral LE edema, seems to be worse on the R than on the L. LLE: there is a superficial ulcer on distal half with pink base, and minimal drainage. Skin is thickened and pigmented. RLE - has circumferential superficial ulcer in almost 2/3 of his leg, with red base of small amount of yellow exudate, mild drainage, no odor and some mild cellulitis present. Skin is also thickened and pigmented. No calf tenderness. Well perfused and warm. NEUROLOGICAL: Awake and alert. Cranial nerves grossly intact. Motor grossly within normal limits. PSYCHIATRIC: Normal affect, calm and cooperative. LINE: No evidence of infection Laboratory Laboratory Tests Test 03/09/17 05:25 White Blood Count 6.1 Red Blood Count 4.33 Hemoglobin 13.1 Hematocrit 38.9 Mean Corpuscular Volume 89.8 Mean Corpuscular Hemoglobin 30.2 Mean Corpuscular Hemoglobin 33.7 Concent Red Cell Distribution Width 13.5 Platelet Count 163 Mean Platelet Volume 7.3 Neutrophils (%) (Auto) 64.1 Lymphocytes (%) (Auto) 20.5 Monocytes (%) (Auto) 12.9 Eosinophils (%) (Auto) 1.8 Basophils (%) (Auto) 0.7 Neutrophils # (Auto) 3.9 Lymphocytes # (Auto) 1.3 Monocytes # (Auto) 0.8 Eosinophils # (Auto) 0.1 Basophils # (Auto) 0.0 CBC Comment DIFF FINAL Differential Comment Prothrombin Time 33.8 Prothromb Time International 2.9 Ratio Sodium Level 138 Potassium Level 3.4 Chloride Level 101 Carbon Dioxide Level 29.8 Anion Gap 7 Blood Urea Nitrogen 17 Creatinine 0.83 Estimat Glomerular Filtration 88 Rate Random Glucose 100 Calcium Level 8.7 Date/Time Procedure Status Source Growth 03/08/17 14:00 Gram Stain - Final Resulted Wound Leg 03/08/17 14:00 Wound Culture - Preliminary Resulted Pseudomonas Species 03/08/17 08:35 Aerobic Blood Culture - Preliminary Resulted Blood Peripheral NO GROWTH IN 1 DAY 03/08/17 08:35 Anaerobic Blood Culture - Preliminary Resulted Blood Peripheral NO GROWTH IN 1 DAY Result Diagram: 03/09/17 0525 03/09/17 0525 Imaging RADIOLOGY STUDIES/FILMS REVIEWED Last Impressions Chest X-Ray 03/08/17 0821 Signed Impressions: Service Date/Time: Wednesday, March 08, 2017 08:41 - CONCLUSION: 1. Minimal basal atelectasis. Pacer lead overlies right ventricle. No consolidation or effusion. Mike Funk MD Aorta w/Runoff CTA 03/08/17 0000 Signed Impressions: Service Date/Time: Wednesday, March 08, 2017 14:34 - CONCLUSION: 1. No significant aortic or iliac inflow stenosis. 2. No significant outflow stenosis. 3. Very limited evaluation of the runoff vessels due to venous contamination and diffusely calcified small caliber vessels. 4. 3 mm nonobstructing calcified calyceal calculus in the inferior pole of the left kidney. 5. Scattered colonic diverticulosis 6. Nonspecific enlargement of prostate gland. Senthil Gusman MD Assessment and Plan Assessment and Plan IMPRESSION Bilateral LE edema with stasis ulcers, C/S mixed enteric GNR Mild cellulitis RLE COPD, Sleep apnea, pulmonary HTN, cor pulmonale RECOMMENDATION Needs to follow at wound care clinic and needs other modalities to control edema since leg elevation is not possible for him Cipro/Levaquin and Clinda x 7 days Rogers is wound care and edema Patient can be D/C, and have wound care at home Can get opinion from wound care MD here - Dr Amanda for recommendations Thank you for this consultation Rhonda John MD Mar 09, 2017 17:59
[2017-03-09] MEDS: CLINDAMYCIN 150 MG CAP PO SCH (20:17)
[2017-03-09 20:33] VITALS: BP 112/69; PULSE 72; RESP 18; TEMP 96.4; O2SAT 98
[2017-03-09 23:53] VITALS: BP 133/71; PULSE 72; RESP 18; TEMP 96.4; O2SAT 98
[2017-03-10] MEDS: CLINDAMYCIN 150 MG CAP PO SCH ×4 (01:30→16:59)
[2017-03-10 07:08] LABS: INTERNATIONAL NORMALIZED RATIO 2.2 RATIO; PROTHROMBIN TIME - PATIENT 25.2 SEC (9.8-11.6)
[2017-03-10] MEDS: POTASSIUM CHLORIDE 20 MEQ CONTROLLED RELEASE TAB PO SCH (07:46)
[2017-03-10] MEDS: SODIUM CHLORIDE 0.9% FLUSH 10 ML FLUSH IV FLUSH SCH (07:47)
[2017-03-10] MEDS: BUMETANIDE 1 MG TAB PO SCH (07:47)
[2017-03-10 08:00] VITALS: BP 122/65; PULSE 67; RESP 16; TEMP 95; O2SAT 97
[2017-03-10] MEDS ORDERED: LEVOFLOXACIN 750 MG TAB PO SCH (09:00)
[2017-03-10 12:00] VITALS: BP 143/68; PULSE 71; RESP 16; TEMP 95.6; O2SAT 97
[2017-03-10] MEDS ORDERED: COUM2TAB PO (12:57)
[2017-03-10] MEDS ORDERED: CLIN150 PO (12:57)
[2017-03-10] MEDS ORDERED: LEVA750T9 PO (12:57)
[2017-03-10] MEDS ORDERED: IPRASOL NEB (12:57)
[2017-03-10] MEDS ORDERED: REST15CA PO (12:57)
[2017-03-10] MEDS ORDERED: LACTCHW3 CHEW (15:40)
== END 2017-03-10 17:16 | DRG 603 ==
LOC: NEPC 07:23 → NEDA 10:00 → N07A 11:20
PROVIDERS: ADMIT Hospitalist; ATTEND Hospitalist
DX: L03.116 Cellulitis of left lower limb (principal); I27.2 Other secondary pulmonary hypertension; L97.419 Non-pressure chronic ulcer of right heel and midfoot with unspecified severity; L97.429 Non-pressure chronic ulcer of left heel and midfoot with unspecified severity; L97.819 Non-pressure chronic ulcer of other part of right lower leg with unspecified severity; J44.9 Chronic obstructive pulmonary disease, unspecified; I48.2 Chronic atrial fibrillation; H91.90 Unspecified hearing loss, unspecified ear; I87.2 Venous insufficiency (chronic) (peripheral); E03.9 Hypothyroidism, unspecified; I10 Essential (primary) hypertension; G47.33 Obstructive sleep apnea (adult) (pediatric); M19.90 Unspecified osteoarthritis, unspecified site; L03.115 Cellulitis of right lower limb; I87.8 Other specified disorders of veins; Z79.01 Long term (current) use of anticoagulants; Z95.0 Presence of cardiac pacemaker; B96.5 Pseudomonas (aeruginosa) (mallei) (pseudomallei) as the cause of diseases classified elsewhere; I27.81 Cor pulmonale (chronic); Z96.653 Presence of artificial knee joint, bilateral
CPT/HCPCS: 71010; 75635; 80048; 80053; 81001; 83690; 83735; 84100; 85025; 85610; 85730; 87040; 87070; 87205; 93005; 96365; J0696; J2543; J3370; J7050; Q9967